=== PATIENT | male | born 1935 | race Caucasian/White ===

== ENCOUNTER 2019-11-10 05:56 | Day surgery (SDC) | payer OTHER, MEDICARE ==
[2019-11-06 10:22] VITALS: BMI 31.5
[2019-11-10] MEDS ORDERED: GENTAMICIN SO4 80 MG/2 ML VIAL ONE (07:03)
[2019-11-10] MEDS ORDERED: TETRACAINE 0.5% OPHTH SOLN 2 ML BOTTLE ONE (07:03)
[2019-11-10] MEDS ORDERED: POVIDONE-IODINE 5% OPHTHALMIC PREP 30 ML SOLUTION ONE (07:03)
[2019-11-10] MEDS ORDERED: LIDOCAINE 1%/EPI 1:100000 (20 ML MULTI DOSE VIAL) ONE (07:04)
[2019-11-10] MEDS ORDERED: BUPIVACAINE HCL/PF 0.5% (5MG/ML) 10 ML VIAL ONE (07:04)
[2019-11-10] MEDS ORDERED: ceFAZolin SODIUM 1 GM VIAL ONE (07:14)
[2019-11-10] MEDS ORDERED: PROPOFOL 20 ML ONE (07:14)
[2019-11-10] MEDS ORDERED: MIDAZOLAM HCL 2 MG/2 ML SINGLE DOSE VIAL ONE (07:15)
[2019-11-10] MEDS ORDERED: ERYTHROMYCIN 0.5% OPHTHALMIC OINTMENT 3.5 GM TUBE ONE (07:20)
[2019-11-10] MEDS ORDERED: DEXAMETHASONE SOD PHOSPHATE 4 MG/1 ML VIAL ONE (08:12)
[2019-11-10] MEDS ORDERED: ONDANSETRON 4 MG/2 ML VIAL ONE (08:12)
[2019-11-10 10:14] VITALS: TEMP 97.7
[2019-11-10 10:38] VITALS: BP 156/68; PULSE 64
== END 2019-11-10 10:42 | disposition home or self-care (01) ==
LOC: FASU 05:56
PROVIDERS: ATTEND Ophthalmology
PROC: 08SR0ZZ Reposition Left Lower Eyelid, Open Approach (ICD-10-PCS; 2019-11-10)
PROC: 08BR0ZZ Excision of Left Lower Eyelid, Open Approach (ICD-10-PCS; principal; 2019-11-10 08:23)
DX: H02.115 Cicatricial ectropion of left lower eyelid (principal)
CPT/HCPCS: 94760

== ENCOUNTER 2020-04-05 07:58 | Day surgery (SDC) | payer OTHER, MEDICARE ==
[2020-03-31 11:53] VITALS: BMI 31.5
[2020-04-05] MEDS ORDERED: ERYTHROMYCIN 0.5% OPHTHALMIC OINTMENT 3.5 GM TUBE ONE (09:23)
[2020-04-05] MEDS ORDERED: BUPIVACAINE HCL/PF 0.5% (5MG/ML) 10 ML VIAL ONE (09:23)
[2020-04-05] MEDS ORDERED: TETRACAINE 0.5% OPHTH SOLN 2 ML BOTTLE ONE (09:23)
[2020-04-05] MEDS ORDERED: LIDOCAINE 1%/EPI 1:100000 (20 ML MULTI DOSE VIAL) ONE (09:23)
[2020-04-05] MEDS ORDERED: POVIDONE-IODINE 5% OPHTHALMIC PREP 30 ML SOLUTION ONE (09:23)
[2020-04-05] MEDS ORDERED: MIDAZOLAM HCL 2 MG/2 ML SINGLE DOSE VIAL ONE ×2 (09:50→10:08)
[2020-04-05] MEDS ORDERED: ceFAZolin SODIUM 1 GM VIAL ONE (10:06)
[2020-04-05] MEDS ORDERED: DEXAMETHASONE SOD PHOSPHATE 4 MG/1 ML VIAL ONE (10:09)
[2020-04-05] MEDS ORDERED: ONDANSETRON 4 MG/2 ML VIAL ONE (10:09)
[2020-04-05] MEDS ORDERED: PROPOFOL 20 ML ONE (10:28)
[2020-04-05] MEDS ORDERED: oxyCODONE HCL 5 MG TABLET PO PRN (11:18)
[2020-04-05] MEDS ORDERED: ONDANSETRON 4 MG/2 ML VIAL IVPUSH PRN (11:18)
[2020-04-05] MEDS ORDERED: LACTATED RINGERS SOLUTION 1,000 ML IV SCH (11:30)
[2020-04-05 12:51] VITALS: TEMP 97.7
[2020-04-05 13:57] VITALS: BP 176/80; PULSE 52
== END 2020-04-05 13:30 | disposition home or self-care (01) ==
LOC: FASU 07:58
PROVIDERS: ATTEND Ophthalmology
PROC: 08BR0ZZ Excision of Left Lower Eyelid, Open Approach (ICD-10-PCS; principal; 2020-04-05 10:12)
DX: H02.115 Cicatricial ectropion of left lower eyelid (principal)
CPT/HCPCS: 94760